=== PATIENT | female | born 1970 | race Caucasian/White ===

== ENCOUNTER 2017-04-08 18:05 | Emergency (ER) | payer MEDICAID ==
[2017-04-08 19:01] LABS: CALCIUM 8.4 mg/dL (8.5-10.1); CARBON DIOXIDE 26.1 mmol/L (21-32); CHLORIDE SERUM 101 mmol/L (98-107); CREATININE SERUM 0.8 mg/dL (0.6-1.0); GFR1 > 60 mL/min; GLUCOSE SERUM 100 mg/dL (74-106); POTASSIUM SERUM 3.9 mmol/L (3.5-5.1); SODIUM SERUM 135 mmol/L (136-145)
[2017-04-08 19:02] LABS: BASOPHIL % 0.7 % (0-2); PLATELET COUNT 323 x10^3mcL (130-400); RED CELL DISTRIBUTION WIDTH 12.4 % (11.5-14.5)
[2017-04-08 19:06] LABS: ALKALINE PHOSPHATASE 139 U/L (46-116); ALT/SGPT 57 U/L (14-59); AST/SGOT 26 U/L (15-37); BILIRUBIN TOTAL 0.42 mg/dL (0.20-1.00)
[2017-04-08 19:08] LABS: ALBUMIN 2.7 g/dL (3.4-5.0)
[2017-04-08 21:36] VITALS: BP 114/75
== END 2017-04-08 22:02 | disposition home or self-care (01) ==
LOC: ED 18:05
PROVIDERS: Emergency Medicine
DX: N10 Acute pyelonephritis (principal); R10.9 Unspecified abdominal pain; Z91.030 Bee allergy status; Z88.0 Allergy status to penicillin; Z88.5 Allergy status to narcotic agent
CPT/HCPCS: J1885; J1956; J7030

== ENCOUNTER 2017-09-22 04:57 | Emergency (ER) | payer MEDICAID ==
[~2017-09-22] VITALS: Ht 165.1 cm; Wt 65.8 kg
[2017-09-22 05:00] VITALS: Ht 165.1 cm; Wt 65.8 kg
[2017-09-22 07:02] VITALS: BP 158/57
== END 2017-09-22 07:02 | disposition home or self-care (01) ==
LOC: ED 04:57
DX: M70.51 Other bursitis of knee, right knee (principal); Y93.89 Activity, other specified; F12.90 Cannabis use, unspecified, uncomplicated; F17.210 Nicotine dependence, cigarettes, uncomplicated; F19.90 Other psychoactive substance use, unspecified, uncomplicated; Z71.6 Tobacco abuse counseling; Z91.030 Bee allergy status; Z88.5 Allergy status to narcotic agent; Z88.0 Allergy status to penicillin; Z90.49 Acquired absence of other specified parts of digestive tract
CPT/HCPCS: 99406

== ENCOUNTER 2018-07-26 04:08 | Emergency (ER) | payer MEDICAID ==
[~2018-07-26] VITALS: Ht 165.1 cm; Wt 70.5 kg
[2018-07-26 04:15] VITALS: Ht 165.1 cm; Wt 70.5 kg
[2018-07-26 05:33] VITALS: BP 165/103
== END 2018-07-26 05:33 | disposition home or self-care (01) ==
LOC: ED 04:08
DX: N76.0 Acute vaginitis (principal); Z88.0 Allergy status to penicillin; Z91.030 Bee allergy status; Z88.5 Allergy status to narcotic agent
CPT/HCPCS: 82962; 87491; 87591

== ENCOUNTER 2019-01-16 06:59 | Emergency (ER) | payer MEDICAID ==
[~2019-01-16] VITALS: Ht 165.1 cm; Wt 69.9 kg
[2019-01-16 07:02] VITALS: BP 170/99
== END 2019-01-16 08:38 | disposition home or self-care (01) ==
LOC: ED 06:59
DX: H53.131 Sudden visual loss, right eye (principal); F17.210 Nicotine dependence, cigarettes, uncomplicated; Z88.0 Allergy status to penicillin; Z91.030 Bee allergy status; Z88.5 Allergy status to narcotic agent

== ENCOUNTER 2019-10-11 20:25 | Emergency (ER) | payer MEDICAID ==
[~2019-10-11] VITALS: Ht 157.5 cm; Wt 65.8 kg
[2019-10-11 21:06] VITALS: Ht 157.5 cm; Wt 65.8 kg
[2019-10-11 23:29] VITALS: BP 151/95
== END 2019-10-11 23:29 | disposition home or self-care (01) ==
LOC: ED 20:25
DX: S43.101A Unspecified dislocation of right acromioclavicular joint, initial encounter (principal); S22.41XA Multiple fractures of ribs, right side, initial encounter for closed fracture; Z88.0 Allergy status to penicillin; Z88.5 Allergy status to narcotic agent; Z91.030 Bee allergy status; V29.49XA Motorcycle driver injured in collision with other motor vehicles in traffic accident, initial encounter; Y93.55 Activity, bike riding; Y92.488 Other paved roadways as the place of occurrence of the external cause; Y99.8 Other external cause status
CPT/HCPCS: 94150; J1885; Q0092